=== PATIENT | female | born 2005 | race Asian ===

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

== ENCOUNTER → 2024-09-12 15:09 | Outpatient (CLI) | payer OTHER, SELFPAY ==
--- NOTE | 2024-09-12 15:10 | DI.US.S_ITS ---
PROCEDURE: US EXTREMELY NONVASC UPPER RT INDICATIONS: R upper arm subq nodule TECHNIQUE: Real-time scanning was performed of the right upper arm, with image documentation. COMPARISON: None. FINDINGS: Examination of right upper arm shows small amount of fluid collection anterior to right biceps muscle and measures 0.6 x 0.2 x 0.6 cm in size. The cephalic vein is visualized and is patent. IMPRESSION: Nonspecific small fluid collection anterior to the right biceps muscle at the area of concern and may represent a small soft tissue cyst in this area. Clinical correlation and follow-up is recommended. Dictated by: Thierno Macdonald M.D. on 09/12/2024 at 16:10 Approved by: Thierno Macdonald M.D. on 09/12/2024 at 16:11
== END ==
PROVIDERS: PCP Registered Nurse Diabetes Educator; Referring Provider Chiropractor; Visit Provider Chiropractor
DX: R22.9 Localized swelling, mass and lump, unspecified (principal)
CPT/HCPCS: 76882